=== PATIENT | male | born 1980 | race Caucasian/White ===

== ENCOUNTER 2024-08-16 23:35 | Inpatient (IN) | payer OTHER, SELFPAY ==
[2024-08-16 21:35] VITALS: BP 186/88
--- NOTE | 2024-08-16 21:36 | ED.GENMED ---
History of Present Illness
General
Chief Complaint: Allergic Reaction
Source: patient and ambulance crew
Exam Limitations: none
Time Seen by Provider: 08/16/24 21:35
History of Present Illness
History of Present Illness:
See MDM
Past History
Past History
ED Past Medical History: Other (Back pain, kidney stones)
ED Past Surgical History: None
Social History
Tobacco: Non-smoker
Phy Exam
Physical Exam
Physical Exam:
See MDM
Course
Orders/Labs/Results
Orders:
Orders
08/16/24 21:35
Dexamethasone Sod Phosphate [Decadron] 5 mg IV NOW STA
Diphenhydramine [Benadryl] 25 mg IV NOW STA
Famotidine [Pepcid] 20 mg IV NOW STA
08/16/24 21:40
EKG [Electrocardiogram (*1)] Stat
Reason for Study: Tachycardia
EKG- Treatment ONCE
08/16/24 22:23
Complete Blood Count/With Diff Urgent
Comprehensive Metabolic Panel Urgent
Abnormal Lab Results
08/16/24
22:23
RBC 4.50 L 10^6/uL
(4.70-6.10)
Hct 38.9 L %
(39.0-52.0)
MCH 31.8 H pg
(27.0-31.0)
Abs Immat Gran (auto) 0.1 H 10^3/uL
(0-0.05)
Immature Gran % 0.6 H %
(0-0.5)
Potassium 3.0 L mmol/L
(3.5-5.1)
Glucose 278 H mg/dl
(70-99)
08/16/24 22:23
08/16/24 22:23
Vital Signs
Initial and Last Documented VS:
Initial Vital Signs
Temp Pulse Resp BP Pulse Ox
99.5 F 120 31 186/88 96
08/16/24 21:35 08/16/24 21:35 08/16/24 21:35 08/16/24 21:35 08/16/24 21:35
Last Documented Vital Signs
Temp Pulse Resp BP Pulse Ox
99.5 F 117 28 126/106 98
08/16/24 21:35 08/16/24 22:01 08/16/24 22:01 08/16/24 22:01 08/16/24 22:01
MDM/Problems Addressed
Differential Diagnosis Includes:
HPI and MDM Narrative:
43-year-old male presenting by EMS for significant allergic reaction. Prior to arrival, patient was eating cherries and developed significant throat and tongue swelling. EMS arrived and provided epinephrine and 10 mg of IV Decadron. He had taken
50 mg of p.o. Benadryl. They called prior to arrival for a second dose of epinephrine. On arrival, patient states he is feeling better but he has significant tongue and facial swelling. EMS stating that he looks better. Patient states he is
having an easier time breathing
Physical exam
General: Mildly uncomfortable
HEENT: protecting airway. Tongue and lip swelling noted
Neck: appears supple
CV: No evidence of cyanosis. Tachycardic
Resp: No accessory muscle use
Abd: Non-distended
Extremities: No deformities
Neuro: alert
Psych: Anxious
Skin: Intact
Problems Addressed including Acute and Chronic Conditions affecting care:
1. Anaphylaxis
Acuity: acute
Prognosis: unstable
Details: In addition to the Decadron and Benadryl given by EMS, will give IV Decadron, IV Benadryl and IV Pepcid and continue to reassess
Updates
After multiple reassessments, patient still improving but still too swollen to go home. Will admit for airway monitoring
Differential Diagnosis (but not limited to): Angioedema, anaphylaxis
Testing considered: Chest x-ray
Drug therapy (if applicable): OTC meds, please see d/c instruction regarding Rx drugs
Amount and/or Complexity of Data Reviewed
Clinical info obtained from: Patient and EMS
External data reviewed: N/A
Labs I independently reviewed (but not limited to): Hyperglycemia likely related to IV steroids
Radiology: N/A
Pulse Ox: not hypoxic
EKG independently reviewed: Sinus tachycardia, normal axis, no STEMI
Insurance Account Representative: Sinus tachycardia
Critical Care: The high probability of a clinically significant, sudden or life threatening deterioration of the respiratory system(s) required my full and direct attention, intervention and personal management. The aggregate critical care time was
33 minutes. This time is in addition to time spent performing reported procedures but includes the following:
[x] Data Review and interpretation
[x] Patient assessment and monitoring of vital signs
[x] Documentation
[x] Medication orders and management
Risk of Complication:
Social Determinants of health: Good social support
Discussed with other providers: N/A
Escalation of Care includes Admit/Obs: After being observed in the Emergency Department, pt stable for discharge.
Occasional wrong word or 'sound a like' substitutions may have occurred due to the inherent limitations of voice recognition software. Read the chart carefully and recognize, using context, where substitutions have occurred.
*Pulse Oximetry
Patient hypoxic: no
*Critical Care Note
Total Time (30-74mins, 75-104mins- exclusive of procedures): 33 min
ED Attending Note
-
Portions of this chart may have been created with voice recognition software.� Occasional wrong word or��sound alike� substitutions may have occurred due to the inherent limitations of voice recognition software.
Discharge Plan
Departure
Patient Disposition: Admit
Date of Disposition: 08/16/24
Time of Disposition: 22:58
Admit to: ICU
Presentation/result/management discussed w/ accepting MD/DO: Hospitalist
Discharge Problem:
Anaphylaxis
Interventions
Interventions:
*General Assessment Last Done: 08/16/24 22:01
*Neglect/Abuse Screening Last Done: 08/16/24 22:01
*ED- Fall Risk Assessment Last Done: 08/16/24 22:01
*ED COVID-19 Vaccine History Last Done: 08/16/24 22:01
ED- Cardiac Assessment Last Done: 08/16/24 22:01
ED- Pulmonary Assessment Last Done: 08/16/24 22:01
ED-Skin Assessment Last Done: 08/16/24 22:01
Discharge Date and Time
Print Language: CITIZ[place]
[2024-08-16] MEDS: PEPCID 20 MG IV (21:41)
[2024-08-16] MEDS: BENADRYL 25 MG IV (21:44)
[2024-08-16] MEDS: DECADRON 5 MG IV (21:46)
[2024-08-16 21:58] VITALS: BMI 30.9
[2024-08-16 22:01] VITALS: BP 126/106
[2024-08-16 22:31] LABS: Hematocrit 38.9 % (39.0-52.0); Hemoglobin 14.3 g/dL (13.0-18.0); Mean Corp Hgb Conc. 36.8 g/dL (33.0-37.0); Mean Corpuscular Volume 86.4 fL (80.0-94.0); Nucleated Red Blood Cells % 0 % (-); Platelet Count 289 10^3/uL (130-400); Red Cell Dist. Width 12.6 % (11.5-14.5)
[2024-08-16 22:46] LABS: ALT (SGPT) 40 U/L (0-50); AST (SGOT) 38 U/L (17-59); Albumin 4.1 g/dl (3.5-5.0); Alkaline Phosphatase 52 U/L (38-126); Blood Urea Nitrogen 11 mg/dl (9-20); Calcium 8.9 mg/dl (8.4-10.2); Carbon Dioxide 27 mmol/L (22-30); Chloride 107 mmol/L (98-107); Estimated Creatinine Clearance 115 ml/min; Glucose 278 mg/dl (70-99); Potassium 3.0 mmol/L (3.5-5.1); Sodium 139 mmol/L (135-145); Total Protein 6.5 g/dl (6.3-8.2); eGFR > 60.00
[2024-08-16 23:00] VITALS: BP 124/68
--- NOTE | 2024-08-16 23:02 | HPS.HSE ---
Family Physician
-
Family Physician:
Chief Complaint
-
significant allergic reaction
History of Present Illness
Patient is a 43-year-old male with past medical history significant for bone cancer who presented to [facility] ED for evaluation of anaphylaxis post eating cherries. Patient report a sandwich prior to cherries and is confident that reaction was post
ingestion of cherries. He denies any recent reaction like this in the past, he did eat cherries previously and last time a year ago. Patient received epinephrine x2 and 10mg Decadron from EMS and he had taken Benadryl 50mg prior to their arrival. He
states his symptoms have improved and he does feel better but he continues with significant tongue and throat swelling.
Medical History
Past Medical History
Past Medical History: Reports Other
Additional Past Medical History:
bone cancer
Past Surgical History: Reports None
Social History
Tobacco: Non-smoker
Alcohol: None
Drug: None
Family History
Family History: Not pertinent
Allergies / Home Medications
Allergies reflects when Allergies were last updated in [facility].
Home Medications with original date entered in [facility]
Allergy/Medication List:
Allergies
Allergy/AdvReac Type Severity Reaction Status Date / Time
amoxicillin Allergy Intermediate Rash Verified 08/16/24 21:52
cherries Allergy Anaphylaxis Uncoded 08/16/24 21:52
Review of Systems
-
History Source: Patient
Constitutional: Reports No Symptoms
EENT: Reports Other (tongue and lip swelling)
Respiratory: Reports Other (protecting airway)
Cardiac: Reports No Symptoms
Abdomen/GI: Reports No Symptoms
: Reports No Symptoms
Musculoskeletal: Reports No Symptoms
Skin: Reports No Symptoms
Neurological: Reports No Symptoms
Endocrine: Reports No Symptoms
Hematologic/Lymphatic: Reports No Symptoms
Psych: Reports Anxiety
Physical Exam
Vital Signs
Vital Signs
Temp Pulse Resp BP Pulse Ox
99.5 F 111 23 126/106 96
08/16/24 21:35 08/16/24 23:00 08/16/24 23:00 08/16/24 22:01 08/16/24 23:00
Physical Exam
General: Well Developed, Well Nourished and Other (mildly uncomfortable and anxious )
HEENT: PERRLA and Crosby Conjunctivae
Respiratory: Clear
Cardiac: S1/S2 and Regular Rhythm
Breast: Deferred by me
GI: Soft, Non Tender, Non Distended and Normal Bowel Sounds
Rectal: Deferred by Provider
Genito-urinary: Deferred by me
Musculoskeletal: No Clubbing, No Cyanosis and No Edema
Skin: IV/Catheter Site
Neuro: Awake, Alert, AO x 3 and Nonfocal/grossly intact
Psych: Anxious
Laboratory Results
-
08/16/24 22:23
08/16/24 22:23
Laboratory Results
Total Bilirubin 0.5 mg/dl (0.2-1.3) 08/16/24 22:23
AST 38 U/L (17-59) 08/16/24 22:23
ALT 40 U/L (0-50) 08/16/24 22:23
Alkaline Phosphatase 52 U/L (38-126) 08/16/24 22:23
Data Reviewed
-
Lab Data: Labs Reviewed by me (K+ 3.0, glucose 278)
Impression/Plan
-
IMPRESSION/PLAN:
#anaphylaxis 2/2 eating cherries
K+ 3.0, glucose 278
- Admit to ICU
- continue Decadron
- continue Pepcid
- Benadryl PRN
#bone cancer
follows with Oncology at [facility]
receiving chemo treatment
- continue to follow up out patient
Code status: full code
DVT prophylaxis: Lovenox sq
--- NOTE | 2024-08-16 23:14 | W.PN.UPDATE ---
Addendum entered and electronically signed by Soni Park MD 08/16/24 23:24:
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 Follows with [facility].
Original Note:
Update Note
Progress Note Update
This is an addendum to H&P written by Antonia Luis on 08/16/2024. Patient seen and examined independently with CORNER BEAD OPERATOR.
43-year-old male past medical history of kidney stones, presenting for significant throat and tongue swelling after eating cherries. EMS given epinephrine and 10 mg IV Decadron. He got 50 mg p.o. Benadryl. He feels better continues to have
significant symptoms.
Vital signs show initial blood pressure of 180s, now improved to 120s. Heart rate 120s.
Labs show hypokalemia. Blood sugar 278.
Patient with anaphylaxis secondary to cherries. Received epinephrine x 2. Continue Decadron. Continue Pepcid. As needed Benadryl. Patient improving. Monitoring for airway protection. Potassium repletion. Tachycardia secondary to epinephrine.
[2024-08-17] VITALS (13 sets, daily range): BP systolic 109–142; BP diastolic 72–88; BMI 29.8
[2024-08-17] MEDS: KCL 270 MEQ IV (00:04)
[2024-08-17 00:51] LABS: Glucose - Point of Care 119 mg/dl (70-99)
[2024-08-17 01:16] LABS: INR 0.92; PT 12.7 Sec (11.4-14.6)
[2024-08-17 01:17] LABS: APTT 23.8 Sec (23.4-35.0)
[2024-08-17 01:26] LABS: Magnesium 2.1 mg/dl (1.6-2.3)
--- NOTE | 2024-08-17 01:38 | PTCARENOTE ---
Received patient AAOx3, following commands, denying pain, slightly drowsy. Slight tongue swelling, patient able to communicate clearly and denies SOB or difficulty swallowing. NS 90s, BP 130s/80s, afebrile, no edema. Palpable radial and pedal pulses
b/l. 95% on room air, lung sounds diminished in the bases. Positive bowel sounds, urinal at bedside. Skin intact, dry/red flaky skin on face, patient reports it is normal for him. LAC prehospital site WNL, right wrist #20 inserted, WNL. Call skinner
within reach.
--- NOTE | 2024-08-17 03:46 | PTCARENOTE ---
Labs sent, patient assessment unchanged from previous. Resting comfortably, call skinner within reach.
[2024-08-17 04:13] LABS: Hematocrit 41.3 % (39.0-52.0); Hemoglobin 14.9 g/dL (13.0-18.0); Mean Corp Hgb Conc. 36.1 g/dL (33.0-37.0); Mean Corpuscular Volume 86.6 fL (80.0-94.0); Platelet Count 276 10^3/uL (130-400); Red Cell Dist. Width 12.7 % (11.5-14.5)
[2024-08-17 04:28] LABS: Blood Urea Nitrogen 13 mg/dl (9-20); Calcium 9.4 mg/dl (8.4-10.2); Carbon Dioxide 20 mmol/L (22-30); Chloride 111 mmol/L (98-107); Estimated Creatinine Clearance 113 ml/min; Glucose 171 mg/dl (70-99); Magnesium 2.1 mg/dl (1.6-2.3); Potassium 5.2 mmol/L (3.5-5.1); Sodium 139 mmol/L (135-145); eGFR > 60.00
--- NOTE | 2024-08-17 07:37 | CON.INTV ---
Consultation
Consultation Request
Date/Time Consultation Requested: 08/17/2024-7 AM
Date/Time Consultation Performed: 08/17/2024- 7:30 AM
Requesting Provider: hospitalist
Performing Provider: Dr. Bucio
Reason for Consultation: allergic reaction/anaphylaxis/critical care management
Medical History
-
Chief Complaint: anaphylaxis
History of Present Illness:
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 The patient feels improved. He does not complain
of any shortness of breath, chest tightness, tongue swelling, throat tightness, wheezing, shortness of breath, chest pain, pleurisy, abdominal pain, nausea, focal weakness.
Past Medical History
Past Medical History: None ( Bone cancer)
Social History
Tobacco: Former Smoker ( [id number] quit mid 20s)
Alcohol: None
Drug: None
Personal:
Living: With Family
Occupational Exposures: no known asbestos exposure
Environmental Exposures: no known tuberculosis exposure
Family History
Family History: Reviewed & Not Pertinent
Allergies / Home Medications
Allergies
Allergy/AdvReac Type Severity Reaction Status Date / Time
amoxicillin Allergy Intermediate Rash Verified 08/16/24 21:52
cherries Allergy Anaphylaxis Uncoded 08/16/24 21:52
Home Medications
�Medication �Instructions �Recorded �Confirmed �Last Taken �Type
acyclovir 400 mg tablet 400 mg PO QPM 08/16/24 08/16/24 08/16/24 History
aspirin 81 mg tablet,delayed 81 mg PO DAILY 08/16/24 08/16/24 08/16/24 History
release
duloxetine 30 mg capsule,delayed 60 mg PO QPM 08/16/24 08/16/24 08/16/24 History
release
lenalidomide 10 mg capsule 10 mg PO NOON 08/16/24 08/16/24 08/16/24 History
oxycodone 15 mg tablet 15 mg PO QID 08/16/24 08/16/24 08/16/24 History
Review of Systems
-
Unable to Obtain full review of systems at this time due to: Other ( per HPI)
Vitals / Labs / Diagnostic Testing
Vital Signs
Temp Pulse Resp BP Pulse Ox
98.4 F 83 18 116/79 96
08/17/24 03:19 08/17/24 06:45 08/17/24 06:45 08/17/24 06:00 08/17/24 06:45
Lab Data
08/17/24 03:44
08/17/24 03:44
Laboratory Results
08/17/24
00:56
PT 12.7
INR 0.92
APTT 23.8
Diagnostic Testing:
Physical Exam
-
Exam:
well-nourished and well-developed in no apparent distress
HEENT-atraumatic, normocephalic
Neck-supple, no JVD, no bruit
Heart-regular rate and rhythm-no murmurs, rubs or gallops
Chest-clear to auscultation, no wheezes, crackles, no stridor
Back-no tenderness
Abdomen-soft, nontender, nondistended, no hepatosplenomegaly
Extremities-no cyanosis, clubbing, edema and good peripheral pulses
Integument-intact, no rashes, lesions or ecchymosis
Neurology-alert and oriented, nonfocal motor and sensory exam
Assessment
-
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
Anaphylaxis-? After eating cherries
Hypokalemia
Hyperglycemia
Conditions present prior to admission:
Bone cancer-follows oncology at [facility]/chemotherapy
Plan
Admit patient to medical intensive care unit and monitor closely for respiratory distress, stridor, wheezing, increased work of breathing, cyanosis, abdominal pain, arrhythmias, chest pain, etc.
Supplemental oxygen as needed
Intubate and mechanically ventilate if necessary
Intravenous fluid resuscitation
Albuterol as needed for bronchospasm
Epinephrine 0.5 mg IM every 15 minutes up to 3 times
Consider epinephrine infusion 0.1 mcg/kg/m if not responding to epinephrine
Consider other vasopressors if unresponsive to epinephrine
Consider glucagon 1-5 mg 5 minutes if patient on beta astrid and unresponsive to epinephrine
Steroids-Decadron 8 mg every 6 hours or Methylprednisolone 125 mg daily
Diphenhydramine 25-50 mg IV every 6 hours
Loritadine or Zyrtec
Pepcid or Ranitidine IV
DVT prophylaxis
Aspiration precautions
Early nutrition
Early mobilization
Outpatient epinephrine autoinjector
Consider outpatient allergy consultation for evaluation and possible desensitization if other agents were the culprit
Critical care statement: A total of 55 minutes of critical care time was provided for this patient today. This includes management of unstable vital signs, management of anaphylaxis, pressor management, evaluation of the patient at bedside,
reviewing the patient's pertinent medical records including radiographs, microbiology, laboratory evaluations, and discussion with primary team, consultants, and critical care nursing.
Diagnostic data:
Data Reviewed
-
EKG: Report reviewed by me
Radiology: Report reviewed by me
Medical Tests (Nuc Med, Echo etc): Report reviewed by me
Labs: Labs reviewed by me
Old Records: Requested
Critical Care Time (in minutes): 55
--- NOTE | 2024-08-17 09:05 | PTCARENOTE ---
All symptoms of anaphylaxis resolved according to the pt. He denies difficulty swallowing, SOB, or and tingly sensations. Left AC#18g and right wrist #20g iv catheters both flushed and patent. Lungs CTA. Good peripheral pulses, no edema, +BSX4, and
voiding. Safe environment maintained. Informed pt to ensure he keeps Benadryl and Pepcid in the house and to have an EPI pen on standby when discharged and to call or go to the ED should this reoccur. He verbalized his understanding. Will continue
to monitor.
--- NOTE | 2024-08-17 09:11 | W.PN.HOSP.TC ---
Addendum entered and electronically signed by Kathy Benites MD 08/17/24 15:23:
I saw and evaluated the patient independently. I reviewed the resident�s note and agree with findings and plan as documented by Dr. Juárez.
GENERAL: well developed, well nourished, male in no apparent distress
HEENT: NC/AT--no O2 requirements--no stridor
HEART: regular rate and rhythm, +S1, +S2
LUNGS : clear to auscultation bilaterally--no wheezing
ABDOM: soft, nontender, nondistended, + bowel sounds
EXT: no cyanosis, clubbing, or edema
NEUROLOGIC: grossly intact
Anaphylaxis--from cherries--place on ALLERGY LIST--resolved--ok for d/c with epipen and steroid taper--Dr. Juárez counselled patient extensively on use of epipen and importance of calling 911 in the event he experiences another anaphylactic
episode and uses his epipen.
Hypophosphatemia--Initial value of 1.2, Unknown etiology--Provided initial dose of 1 packet of potassium,sodium phosphates and a 7 day supply--Encouraged patient to follow up with his doctor to repeat phosphorous value in an outpatient setting
Bone Cancer of Hips and Lower Back--Follows at [facility]
OK for d/c
Original Note:
Today's Communication/Plan
-
Discharge today
Assessment / Plan
Assessment / Plan
Assessment
This is a 43 y/o male with pmhx of bone cancer of the hips and lower back who follows at [facility] who presented to the ED on 08/16/2024 with significant throat and tongue swelling due to anaphylatic reaction to cherries.
Plan
Anaphylaxis
-Patient now medically stable and ready for discharge
-Will order epipen and steroid taper
-Counselled patient extensively on use of epipen and importance of calling 911 in the event he experiences another anaphylactic episode and uses his epipen.
Hypophosphatemia
-Initial value of 1.2, Unknown etiology.
-Provided initial dose of 1 packet of potassium,sodium phosphates and a 7 day supply.
-Encouraged patient to follow up with his doctor to repeat phosphorous value in an outpatient setting
Bone Cancer of Hips and Lower Back
-Follows at [facility]
Anticipated Discharge: Today
Subjective/Interval History
-
Date of Service: August 17, 2024
Patient was sleeping when I arrived today. He reported feeling much improved from how he felt yesterday, and denied any sensation of throat or tongue swelling. He clarified to me that his allergy to amoxicillin is hives, and that he has never had an
anaphylactic reaction before.
Objective Data
-
Labs:
Laboratory Results
08/16/24 08/17/24 08/17/24
22:23 00:56 03:44
WBC 8.2 6.3
Hgb 14.3 14.9
Hct 38.9 L 41.3
Plt Count 289 276
PT 12.7
INR 0.92
APTT 23.8
Sodium 139 139
Potassium 3.0 L 5.2 H D
Chloride 107 111 H
Carbon Dioxide 27 20 L
BUN 11 13
Creatinine 0.9 0.9
Glucose 278 H 171 H
Calcium 8.9 9.4
Total Bilirubin 0.5
AST 38
ALT 40
Alkaline Phosphatase 52
Vital Signs:
Vital Signs
Temp Pulse Resp BP Pulse Ox
98.6 F 83 18 116/79 96
08/17/24 08:49 08/17/24 06:45 08/17/24 06:45 08/17/24 06:00 08/17/24 06:45
I&O
08/16/24 08/17/24 08/18/24
06:59 06:59 06:59
Intake Total 270 / 270
Output Total 1350 / 1350 400 / 400
Balance -1080 / -3793 -400 / -400
Review of Systems
-
History Source: Patient
Constitutional: Reports No Symptoms
EENT: Reports No Symptoms Reported
Respiratory: Reports No Symptoms
Cardiac: Reports No Symptoms
Abdomen/GI: Reports No Symptoms
Skin: Reports No Symptoms
Neuro: Reports No Symptoms
Physical Exam
-
General: Well Developed, Well Nourished, No Apparent Distress and Comfortable
HEENT: Normocephalic and Atraumatic
Respiratory: Clear to Auscultation
Cardiac: Regular Rhythm and S1/S2
Musculoskeletal: No Edema
Skin: Warm and Dry
Psych: Calm
[2024-08-17] MEDS: DECADRON 6 MG IV (09:29)
[2024-08-17] MEDS: NEUTRA-PHOS POWDER PACKET 250 MG PO (10:16)
--- NOTE | 2024-08-17 11:31 | PTCARENOTE ---
Reviewed all discharge instructions. No questions at this time.
--- NOTE | 2024-08-17 13:41 | W.DCSUMMARY ---
Addendum entered and electronically signed by Kathy Benites MD 08/17/24 15:24:
Read, reviewed, and agree. See same day progress note for additional details. Time spent coordinating care, DC planning, review of DC plan of care with resident, transition of care, review of records in EMR, med rec, consults, notes, d/w
consultants, nursing, family, and CM = 31 minutes
Original Note:
Discharge Summary
Discharge Data
Date of Admission: 08/16/24
Date of Discharge: 08/17/24
-
Pending Results: No
Hospital Course
This is a 43 y/o male with pmhx of bone cancer of the hips and lower back who follows at [facility] who presented to the ED with significant throat and tongue swelling. Prior to developing these symptoms he consumed a sandwich and cherries, and
believes that the cherries were the reason for his allergy. He has not had any history of anaphylaxis in the past and most recently consumed cherries ~1 year prior. His only other known allergy is to penicillin, which he develops hives. Labs
overnight also revealed hypophosphatemia.
He spent the night in the ICU, where he had no complications. In the morning he was doing very well. He was given potassium, sodium, phosphates powder and once medically stable he was discharged to home. He was given an epipen upon discharge as well
as specific instructions to call 911 if he has another anaphylactic reaction even if he uses his epipen and starts to feel better. He was also given a prednisone taper, and potassium, sodium, and phosphate powder to use until he can follow up with
his PCP, which he was encouraged to do.
Discharge Plan
-
Patient Disposition: Home (Routine Discharge)
Discharge Diagnosis/Procedures: Anaphylaxis, Bone cancer of the Hip and Lower Back, Hypophosphatemia
Condition: Good
Diet: No restrictions
Additional Diets: Avoid Cherries!
Activity: No restrictions
Driving Restrictions: As prior to admission
Bathing Restrictions: None
Referrals:
Ben Epperson MD [Family Provider, [facility]]
Prescriptions:
New
potassium, sodium phosphates 280-160-250 mg Powder In Packet
1 packet PO PCHS 7 Days Qty: 100 0RF
prednisone 10 mg Tablet
See Rx Instructions .ROUTE .COMPLEX Qty: 30 0RF
Rx Instructions:
Take By Mouth:
40 mg daily x3 days, 30 mg daily x3 days,
20 mg daily x3 days, 10 mg daily x3 days.
epinephrine [EpiPen] 0.3 mg/0.3 mL auto-injector
0.3 mg IM ONCE Qty: 1 0RF
Continued
acyclovir 400 mg Tablet
400 mg PO QPM
aspirin 81 mg Tablet,Delayed Release (Dr/Ec)
81 mg PO DAILY
oxycodone 15 mg Tablet
15 mg PO QID
Patient Comments:
08/16/2024, last filled on 08/11/2024 for 90 tablets for 23-day supply per PDMP.
duloxetine 30 mg Capsule,Delayed Release(Dr/Ec)
60 mg PO QPM
lenalidomide 10 mg Capsule
10 mg PO NOON
Discharge Orders:
Discharge Patient (As Directed); Ordered 08/17/24
Ordered By: Ana Juárez
Discharge Date and Time
Discharge Date/Time: 08/17/24 11:45
Print Language: [place]
--- NOTE | 2024-08-17 13:55 | CM ---
Patient seen at bedside in ICU with physicians. Patient stated that he lives with family in a 2 story home. Patient has no DME at home. Patient PCP is Dr. Epperson and he uses the [facility] in [place]. Patient for discharge home today and follow up with
PCP and patient has a ride home. CM will continue to follow for discharge planning needs.
Plan; home with family follow up with pcp
== END 2024-08-17 11:45 | disposition home or self-care (01) | DRG 916 ==
LOC: ICU 23:35
PROVIDERS: Nurse Practitioner Family; ADMITTING PHYSICIAN Hospitalist; ATTENDING PHYSICIAN Internal Medicine; CONSULT PHYSICIAN Internal Medicine Critical Care Medicine; EMERGENCY PHYSICIAN Student in an Organized Health Care Education/Training Program; FAMILY PHYSICIAN Family Medicine
DX: T78.2XXA Anaphylactic shock, unspecified, initial encounter (principal); E83.39 Other disorders of phosphorus metabolism; E87.6 Hypokalemia; T38.0X5A Adverse effect of glucocorticoids and synthetic analogues, initial encounter; Z79.82 Long term (current) use of aspirin; Z79.899 Other long term (current) drug therapy; Z87.891 Personal history of nicotine dependence
CPT/HCPCS: 80048; 80053; 82962; 83735; 84100; 85025; 85027; 85610; 85730; 93005; 96374; 96375; 99291